=== PATIENT | female | born 1945 | race Caucasian/White ===

== ENCOUNTER 2016-09-06 13:26 | Emergency (ER) | payer MEDICARE ==
[~2016-09-06] VITALS: Wt 90.7 kg
[~2016-09-06 13:26] MED LIST: ALPRAZOLAM0.25 M2 PO; BACTRIM DS 8001 TA1 PO; CEPHALEXIN500 M1 PO; ESCITALOPRAM OX20 MG PO; MIRTAZAPINE30 M2 PO; QUETIAPINE FUM300 M1 PO; TRAZODONE50 MG PO
[2016-09-06] MEDS ORDERED: CYCLOBENZAPRINE5 M3 PO (16:02)
== END 2016-09-06 16:21 | disposition home or self-care (01) ==
LOC: ED 13:26
DX: S13.9XXA Sprain of joints and ligaments of unspecified parts of neck, initial encounter (principal); S00.81XA Abrasion of other part of head, initial encounter; S40.812A Abrasion of left upper arm, initial encounter; S40.811A Abrasion of right upper arm, initial encounter; W20.8XXA Other cause of strike by thrown, projected or falling object, initial encounter; Y93.89 Activity, other specified; Y92.89 Other specified places as the place of occurrence of the external cause; Y99.9 Unspecified external cause status

== ENCOUNTER 2017-12-15 12:48 | Emergency (ER) | payer MEDICARE ==
[~2017-12-15] VITALS: Ht 160 cm; Wt 90.7 kg
[~2017-12-15 12:48] MED LIST changes: +CYCLOBENZAPRINE5 M3 PO
[2017-12-15] MEDS ORDERED: NAPROSYN500 MG PO (12:59)
[2018-01-12] MEDS ORDERED: PYRIDIUM200 M1 PO (13:33)
[2018-01-12] MEDS ORDERED: SEPTDS PO (13:33)
== END 2017-12-15 14:17 | disposition home or self-care (01) ==
LOC: ED 12:48
DX: M25.562 Pain in left knee (principal); R03.0 Elevated blood-pressure reading, without diagnosis of hypertension

== ENCOUNTER → 2018-06-13 | Outpatient (CLI) | payer MEDICARE ==
[~2018-06-13] MED LIST changes: +NAPROSYN500 MG PO; +PYRIDIUM200 M1 PO; +SEPTDS PO
== END | disposition home or self-care (01) ==
LOC: CARD 06-11 14:00
DX: Z12.31 Encounter for screening mammogram for malignant neoplasm of breast (principal); I25.708 Atherosclerosis of coronary artery bypass graft(s), unspecified, with other forms of angina pectoris; I34.0 Nonrheumatic mitral (valve) insufficiency

== ENCOUNTER → 2018-06-17 | Outpatient (CLI) | payer MEDICARE | END | disposition home or self-care (01) | LOC: US 00:33 | DX: N18.3 Chronic kidney disease, stage 3 (moderate) (principal) ==

== ENCOUNTER → 2018-07-18 | Outpatient (CLI) | payer MEDICARE | END | disposition home or self-care (01) | LOC: MAMMO 07-10 01:23 | DX: N60.02 Solitary cyst of left breast (principal) ==

== ENCOUNTER → 2019-03-10 | Outpatient (CLI) | payer MEDICARE | END | disposition home or self-care (01) | LOC: RAD 10:53 | DX: M17.12 Unilateral primary osteoarthritis, left knee (principal); M79.89 Other specified soft tissue disorders ==

== ENCOUNTER → 2020-10-25 | Outpatient (CLI) | payer MEDICARE ==
[2020-10-25 16:03] LABS: BASO # 0.1 10*3/uL (0.0-0.1); BASO % 1.6 % (0.0-1.0); EOS # 0.2 10*3/uL (0.0-0.4); EOS % 2.5 % (1.0-4.0); HEMATOCRIT 41.9 % (37.0-47.0); LYMPH # 2.2 10*3/uL (1.3-4.4); MEAN CELL VOLUME 78.6 fl (81.0-99.0); MEAN CORPUSCULAR HGB 25.9 pg (27.0-31.0); MEAN CORPUSCULAR HGB CONC 32.9 g/dl (33.0-37.0); MEAN PLATELET VOLUME 10.7 fl (9.6-12.3); MONO # 0.6 10*3/uL (0.1-1.0); MONO % 7.8 % (3.0-9.0); NEUT # 4.2 10*3/uL (2.3-7.9); NEUT % 57.8 % (47.0-73.0); PLATELET COUNT AUTOMATED 315 10*3/uL (130-400); RED BLOOD COUNT 5.33 10*6/uL (4.10-5.10); RED CELL DISTRI WIDTH 16.9 % (0-14.5); WHITE BLOOD COUNT 7.3 10*3/uL (4.8-10.8)
[2020-10-25 16:34] LABS: ALBUMIN 3.5 gm/dl (3.1-4.5); ALKALINE PHOSPHATASE 65 U/L (45-117); BUN 11 mg/dl (7-24); CHLORIDE 102 mmol/L (98-107); CHOLESTEROL 251 mg/dL (<200); CREATININE 0.82 mg/dL (0.55-1.02); LDL CHOLESTEROL 175 mg/dL (9-159); POTASSIUM 3.3 mmol/L (3.5-5.1); SGOT/AST 10 IU/L (3-35); SGPT/ALT 14 U/L (12-78); SODIUM 137 mmol/L (136-145); TRIGLYCERIDES 115 mg/dl (<150)
[2020-10-25 16:38] LABS: VITAMIN D, 25-HYDROXY 36.7 ng/mL (30-100)
== END | disposition home or self-care (01) ==
LOC: LAB 15:22
PROVIDERS: ATTEND Internal Medicine Nephrology
DX: I10 Essential (primary) hypertension (principal); I25.708 Atherosclerosis of coronary artery bypass graft(s), unspecified, with other forms of angina pectoris; E78.5 Hyperlipidemia, unspecified; E55.9 Vitamin D deficiency, unspecified; E53.8 Deficiency of other specified B group vitamins

== ENCOUNTER 2020-12-27 14:56 | Emergency (ER) | payer MEDICARE ==
[~2020-12-27] VITALS: Ht 162.5 cm; Wt 86.2 kg
[2020-12-27 16:03] LABS: BILIRUBIN Negative (Negative); BLOOD Negative (Negative); CLARITY Cloudy (Clear); COLOR Yellow (Yellow); GLUCOSE Negative (Negative); KETONE Negative (Negative); LEUKO ESTERASE 1+ (Negative); NITRITE Positive (Negative); PH 6.5 (4.5-8.0); SPECIFIC GRAVITY 1.015 (1.001-1.030)
[2020-12-27 16:19] LABS: BACTERIA 3+; EPITHELIAL CELLS 31-40; RBC 0-2 rbc/hpf (0-2); WBC 16-20 wbc/hpf (0-5)
[2020-12-27] MEDS ORDERED: CEFUROXIME AXE500 MG PO (16:23)
== END 2020-12-27 16:40 | disposition home or self-care (01) ==
LOC: ED 14:56
PROVIDERS: Physician Assistant
DX: N39.0 Urinary tract infection, site not specified (principal)

== ENCOUNTER → 2022-05-05 | Outpatient (CLI) | payer MEDICARE ==
[~2022-05-05] MED LIST changes: +CEFUROXIME AXE500 MG PO
== END | disposition home or self-care (01) ==
LOC: RAD 15:31
PROVIDERS: ATTEND Internal Medicine Nephrology
DX: M25.511 Pain in right shoulder (principal)

== ENCOUNTER 2022-06-18 08:44 | Emergency (ER) | payer MEDICARE ==
[~2022-06-18] VITALS: Ht 162.5 cm; Wt 78.5 kg
[2022-06-18] MEDS ORDERED: PREDNISONE50 MG PO (09:51)
== END 2022-06-18 09:56 | disposition home or self-care (01) ==
LOC: ED 08:44
DX: M25.561 Pain in right knee (principal); Z98.890 Other specified postprocedural states

== ENCOUNTER 2023-07-07 12:48 | Emergency (ER) | payer MEDICARE ==
[~2023-07-07 12:48] MED LIST changes: +ASPIRIN ADULT L81 M2 PO; +ATORVASTATIN CA40 M1 PO; +CARVEDILOL3.125 MG PO; +MELATONIN10 M4 PO; +NAPROXEN500 MG PO; +PREDNISONE50 MG PO; +QUETIAPINE FUM400 M1 PO; +TOPIRAMATE50 M2 PO; +ZETIA10 MG PO
[2023-07-07] MEDS ORDERED: Albuterol Sulfate 2.5 MG/3 ML VIAL NEB ONE (13:00)
[2023-07-07] MEDS ORDERED: MAGNESIUM SULFATE 50 ML IV ONE (13:00)
[2023-07-07] MEDS ORDERED: methylPREDNISolone sod succ 125 MG VIAL IV ONE (13:00)
[2023-07-07 13:20] LABS: BASO # 0.1 10*3/uL (0.0-0.1); BASO % 1.2 % (0.0-1.0); EOS # 0.1 10*3/uL (0.0-0.4); EOS % 0.8 % (1.0-4.0); HEMATOCRIT 38.2 % (37.0-47.0); LYMPH # 1.6 10*3/uL (1.3-4.4); LYMPH % 16.7 % (27.0-41.0); MEAN CELL VOLUME 74.5 fl (81.0-99.0); MEAN CORPUSCULAR HGB 23.4 pg (27.0-31.0); MEAN CORPUSCULAR HGB CONC 31.4 g/dl (33.0-37.0); MEAN PLATELET VOLUME 10.5 fl (9.6-12.3); MONO # 0.6 10*3/uL (0.1-1.0); MONO % 5.8 % (3.0-9.0); NEUT # 7.3 10*3/uL (2.3-7.9); PLATELET COUNT AUTOMATED 319 10*3/uL (130-400); RED BLOOD COUNT 5.13 10*6/uL (4.10-5.10); RED CELL DISTRI WIDTH 16.8 % (0-14.5); WHITE BLOOD COUNT 9.8 10*3/uL (4.8-10.8)
[2023-07-07] MEDS ORDERED: SODIUM CHLORIDE 0.9% 1,000 ML IV ONE (13:20)
[2023-07-07] MEDS ORDERED: Ondansetron Hydrochloride 4 MG/2 ML VIAL IV ONE (13:20)
[2023-07-07 13:31] LABS: ACT PARTIAL THROMBO TIME 33.2 SECONDS (20.0-32.1)
[2023-07-07 13:39] LABS: ALKALINE PHOSPHATASE 57 U/L (46-116); BUN 13 mg/dl (9-23); CHLORIDE 99 mmol/L (98-107); POTASSIUM 3.5 mmol/L (3.4-5.1); TOTAL PROTEIN 6.6 gm/dL (6.0-8.0)
[2023-07-07 13:46] LABS: SGPT/ALT < 7 U/L (5-49)
[2023-07-07 14:39] LABS: BILIRUBIN Negative (Negative); BLOOD Negative (Negative); CLARITY Cloudy (Clear); COLOR Yellow (Yellow); GLUCOSE Negative (Negative); KETONE Negative (Negative); LEUKO ESTERASE Negative (Negative); NITRITE Positive (Negative)
[2023-07-07 14:51] LABS: BACTERIA 4+
[2023-07-07] MEDS ORDERED: IOHEXOL 300 MG/ML 100 ML VIAL IV ONE (15:05)
[2023-07-07] MEDS ORDERED: Ceftriaxone Sodium 1 GM/10 ML SYR IV ONE (15:30)
[2023-07-07] MEDS ORDERED: SEPTDS PO (17:28)
== END 2023-07-07 18:00 | disposition home or self-care (01) ==
LOC: ED 12:48
PROVIDERS: Internal Medicine
DX: I95.1 Orthostatic hypotension (principal); N39.0 Urinary tract infection, site not specified; I25.10 Atherosclerotic heart disease of native coronary artery without angina pectoris; F41.9 Anxiety disorder, unspecified; Z98.890 Other specified postprocedural states

== ENCOUNTER → 2024-04-03 | Outpatient (CLI) | payer MEDICARE ==
[2024-04-03 11:37] LABS: BASO # 0.1 10*3/uL (0.0-0.1); BASO % 1.6 % (0.0-1.0); EOS # 0.1 10*3/uL (0.0-0.4); EOS % 1.9 % (1.0-4.0); HEMATOCRIT 38.8 % (37.0-47.0); MEAN CORPUSCULAR HGB CONC 32.5 g/dl (33.0-37.0); MEAN PLATELET VOLUME 10.4 fl (9.6-12.3); MONO # 0.6 10*3/uL (0.1-1.0); MONO % 8.6 % (3.0-9.0); NEUT # 4.5 10*3/uL (2.3-7.9); NEUT % 65.5 % (47.0-73.0); PLATELET COUNT AUTOMATED 359 10*3/uL (130-400); RED BLOOD COUNT 5.24 10*6/uL (4.10-5.10); RED CELL DISTRI WIDTH 17.9 % (0-14.5); WHITE BLOOD COUNT 6.9 10*3/uL (4.8-10.8)
[2024-04-03 12:23] LABS: ALKALINE PHOSPHATASE 64 U/L (46-116); BUN 18 mg/dl (9-23); CHLORIDE 100 mmol/L (98-107); CHOLESTEROL 246 mg/dL (<200); LDL CHOLESTEROL 161 mg/dL (9-159); TOTAL PROTEIN 6.5 gm/dL (6.0-8.0); TRIGLYCERIDES 86 mg/dl (<150)
[2024-04-03 12:24] LABS: SGPT/ALT < 7 U/L (5-49)
[2024-04-03 12:25] LABS: FREE T4 1.14 ng/dl (0.89-1.76)
== END | disposition home or self-care (01) ==
LOC: LAB 11:09
PROVIDERS: Internal Medicine Nephrology; ATTEND Nurse Practitioner
DX: Z51.81 Encounter for therapeutic drug level monitoring (principal); R53.1 Weakness; E53.8 Deficiency of other specified B group vitamins; F31.9 Bipolar disorder, unspecified; I10 Essential (primary) hypertension; E78.5 Hyperlipidemia, unspecified; I25.10 Atherosclerotic heart disease of native coronary artery without angina pectoris; Z79.899 Other long term (current) drug therapy

== ENCOUNTER 2024-08-13 11:11 | Emergency (ER) | payer MEDICARE ==
[2024-08-13 11:43] LABS: BASO # 0.1 10*3/uL (0.0-0.1); BASO % 0.9 % (0.0-1.0); EOS # 0.1 10*3/uL (0.0-0.4); HEMATOCRIT 38.1 % (37.0-47.0); MEAN CELL VOLUME 75.4 fl (81.0-99.0); MEAN CORPUSCULAR HGB 24.4 pg (27.0-31.0); MEAN CORPUSCULAR HGB CONC 32.3 g/dl (33.0-37.0); MONO # 0.4 10*3/uL (0.1-1.0); MONO % 4.9 % (3.0-9.0); NEUT # 5.9 10*3/uL (2.3-7.9); NEUT % 76.4 % (47.0-73.0); PLATELET COUNT AUTOMATED 292 10*3/uL (130-400); RED BLOOD COUNT 5.05 10*6/uL (4.10-5.10); RED CELL DISTRI WIDTH 21.8 % (0-14.5); WHITE BLOOD COUNT 7.8 10*3/uL (4.8-10.8)
[2024-08-13 12:03] LABS: BUN 15 mg/dl (9-23); CHLORIDE 104 mmol/L (98-107); POTASSIUM 4.2 mmol/L (3.4-5.1)
[2024-08-13] MEDS ORDERED: AVPAK AZITHROM250 M1 PO (12:22)
[2024-08-13] MEDS ORDERED: AZITHROMYCIN 250 MG TAB PO ONE (12:25)
== END 2024-08-13 12:34 | disposition home or self-care (01) ==
LOC: ED 11:11
PROVIDERS: Nurse Practitioner Family
DX: J40 Bronchitis, not specified as acute or chronic (principal); I25.10 Atherosclerotic heart disease of native coronary artery without angina pectoris; F32.A Depression, unspecified; F41.9 Anxiety disorder, unspecified; Z79.82 Long term (current) use of aspirin; Z79.899 Other long term (current) drug therapy

== ENCOUNTER 2024-11-02 10:53 | Emergency (ER) | payer MEDICARE ==
[~2024-11-02] VITALS: Ht 162.5 cm; Wt 90.7 kg
[~2024-11-02 10:53] MED LIST changes: +AVPAK AZITHROM250 M1 PO
[2024-11-02] MEDS ORDERED: Ondansetron Hydrochloride 4 MG TAB SL ONE (11:20)
[2024-11-02 11:42] LABS: BASO # 0.1 10*3/uL (0.0-0.1); BASO % 0.3 % (0.0-1.0); EOS % 0.2 % (1.0-4.0); MEAN CELL VOLUME 77.6 fl (81.0-99.0); MEAN CORPUSCULAR HGB 24.5 pg (27.0-31.0); MEAN CORPUSCULAR HGB CONC 31.6 g/dl (33.0-37.0); MEAN PLATELET VOLUME 10.8 fl (9.6-12.3); MONO # 0.7 10*3/uL (0.1-1.0); MONO % 4.2 % (3.0-9.0); NEUT % 89.1 % (47.0-73.0); PLATELET COUNT AUTOMATED 274 10*3/uL (130-400); RED CELL DISTRI WIDTH 17.1 % (0-14.5); WHITE BLOOD COUNT 16.8 10*3/uL (4.8-10.8)
[2024-11-02 12:03] LABS: ALKALINE PHOSPHATASE 60 U/L (46-116); BUN 14 mg/dl (9-23); CHLORIDE 98 mmol/L (98-107); POTASSIUM 3.3 mmol/L (3.4-5.1)
[2024-11-02 12:04] LABS: SGPT/ALT < 7 U/L (5-49)
[2024-11-02] MEDS ORDERED: POTASSIUM CHLORIDE 20 MEQ TAB PO ONE (12:30)
[2024-11-02 12:35] LABS: BILIRUBIN Negative (Negative); BLOOD Negative (Negative); CLARITY Cloudy (Clear); COLOR Yellow (Yellow); GLUCOSE Negative (Negative); KETONE Negative (Negative); LEUKO ESTERASE 2+ (Negative); NITRITE Positive (Negative); PH 5.5 (4.5-8.0); SPECIFIC GRAVITY 1.015 (1.001-1.030)
[2024-11-02 12:45] LABS: BACTERIA 3+; WBC 31-40 wbc/hpf (0-5)
[2024-11-02] MEDS ORDERED: Nitrofurantoin Monohydrate/N 100 MG CAP PO ONE (13:10)
[2024-11-02] MEDS ORDERED: PYRIDIUM100 MG PO (13:12)
[2024-11-02] MEDS ORDERED: MACROBID100 M1 PO (13:12)
[2024-11-02] MEDS ORDERED: Ondansetron4 MG PO (13:12)
== END 2024-11-02 13:16 | disposition home or self-care (01) ==
LOC: ED 10:53
PROVIDERS: Nurse Practitioner
DX: N39.0 Urinary tract infection, site not specified (principal); I10 Essential (primary) hypertension; E78.5 Hyperlipidemia, unspecified; R42 Dizziness and giddiness; Z79.899 Other long term (current) drug therapy; Z79.82 Long term (current) use of aspirin

== ENCOUNTER 2024-11-24 14:28 | Emergency (ER) | payer MEDICARE ==
[~2024-11-24] VITALS: Ht 162.5 cm; Wt 82.6 kg
[~2024-11-24 14:28] MED LIST changes: +MACROBID100 M1 PO; +Ondansetron4 MG PO; +PYRIDIUM100 MG PO
[2024-11-24 15:43] LABS: BASO # 0.1 10*3/uL (0.0-0.1); BASO % 1.2 % (0.0-1.0); EOS # 0.5 10*3/uL (0.0-0.4); EOS % 8.6 % (1.0-4.0); MEAN CELL VOLUME 76.8 fl (81.0-99.0); MEAN CORPUSCULAR HGB 24.4 pg (27.0-31.0); MEAN PLATELET VOLUME 10.6 fl (9.6-12.3); MONO # 0.5 10*3/uL (0.1-1.0); MONO % 8.8 % (3.0-9.0); NEUT # 2.9 10*3/uL (2.3-7.9); NEUT % 48.8 % (47.0-73.0); NUCLEATED RED BLOOD CELL 0.0 % (0.0-0.0); NUCLEATED RED BLOOD CELL 0.0 10*3/uL (0.0-0.0); PLATELET COUNT AUTOMATED 262 10*3/uL (130-400); RED CELL DISTRI WIDTH 18.1 % (0-14.5)
[2024-11-24 16:04] LABS: BUN 14 mg/dl (9-23)
[2024-11-24 16:37] LABS: BILIRUBIN Negative (Negative); BLOOD Negative (Negative); CLARITY Cloudy (Clear); COLOR Yellow (Yellow); KETONE Trace (Negative); LEUKO ESTERASE 3+ (Negative); NITRITE Positive (Negative); PH 6.5 (4.5-8.0); SPECIFIC GRAVITY 1.015 (1.001-1.030); UROBILINOGEN 2.0 E.U./dl (0.0-1.0)
[2024-11-24] MEDS ORDERED: CIPRO500 MG PO (17:20)
[2024-11-24 18:02] LABS: BACTERIA 4+; WBC 21-30 wbc/hpf (0-5)
== END 2024-11-24 18:06 | disposition home or self-care (01) ==
LOC: ED 14:28
PROVIDERS: Internal Medicine
DX: N39.0 Urinary tract infection, site not specified (principal); F32.A Depression, unspecified; F41.9 Anxiety disorder, unspecified; I25.10 Atherosclerotic heart disease of native coronary artery without angina pectoris; Z79.899 Other long term (current) drug therapy